=== PATIENT | female | born 1950 | race Caucasian/White ===

== ENCOUNTER 2020-02-13 13:57 | Outpatient (CLI) | payer MEDICARE | END 2020-02-13 23:59 | disposition home or self-care (01) | LOC: RAD 13:57 | PROVIDERS: ATTEND Family Medicine | DX: R13.10 Dysphagia, unspecified (principal); K21.9 Gastro-esophageal reflux disease without esophagitis; M19.90 Unspecified osteoarthritis, unspecified site; G43.909 Migraine, unspecified, not intractable, without status migrainosus | CPT/HCPCS: 70450; 72125; 74230 ==